=== PATIENT | female | born 1955 | race Caucasian/White ===

== ENCOUNTER 2017-05-03 17:40 | Emergency (ER) | payer MEDICARE, BC ==
[2017-05-03 22:31] LABS: ABS Basophils 0.1 10^3/ul (0-0.2); ABS Eosinophils 0.2 10^3/ul (0-0.6); ABS Lymphocytes 3.2 10^3/ul (1.0-4.8); ABS Monocytes 1.1 10^3/ul (0-0.8); ABS Neutrophils 8.5 10^3/ul (1.5-7.7); ABS Nucleated RBC 0 10^3/ul; Eosinophil % 1.5 % (0-6); Hematocrit 39 % (35-47); Hemoglobin 12.7 g/dl (12.0-16.0); Lymphocyte % 24.2 % (25-47); Mean Corpuscular HGB Conc 33 g/dl (31-36); Mean Corpuscular Hemoglobin 27 pg (27-31); Mean Corpuscular Volume 81 fL (80-97); Mean Platelet Volume 9 um3 (7.4-10.4); Nucleated Red Blood Cells % 0; Platelet Count 342 10^3/ul (150-450); Red Blood Count 4.76 10^6/ul (4.0-5.4); Red Cell Distribution Width 14 % (10.5-15); White Blood Count 13.2 10^3/ul (3.5-10.8)
[2017-05-03 22:49] LABS: EGFR Non-African American 64.1 (>60)
--- NOTE | 2017-05-03 23:29 | ED ---
Skin Complaint - HPI Summary HPI Summary: Lt great toe w/ redness, swelling pain and fever to touch. Started as crack between toes and has been getting worse since - noticed some d/c from said crack. Better w/ elevation and epsom salt soak - worse when it's been hanging down. Denies fever but has been more tired as of late. Admits to DM type 2 - has not checked her glucose as she's felt okay in this regard. Takes metformin and admits she doesn't eat the healthiest d/t financial situation. Has DM, fibromyalgia, interstitial cystitis and is sensitive to many foods - eats candy as sometimes that's all they have in the house. - History of Current Complaint Chief Complaint: EDExtremityLower Time Seen by Provider: 05/03/17 21:45 Stated Complaint: LT FT INJURY Hx Obtained From: Patient Pain Intensity: 7 - Allergy/Home Medications Allergies/Adverse Reactions: Allergies Allergy/AdvReac Type Severity Reaction Status Date / Time No Known Allergies Allergy Verified 05/03/17 21:57 PMH/Surg Hx/FS Hx/Imm Hx Previously Healthy: Yes Endocrine/Hematology History: Reports: Hx Diabetes History: Reports: Hx Renal Disease - pt believes this is from years of use of NSAID's - thinks it's improving, Other Problems/Disorders - interstitial cystitis Musculoskeletal History: Reports: Hx Fibromyalgia - sx include memory issues - Surgical History Surgery Procedure, Year, and Place: abd surgery, vaginal surgery, c section x 2 Infectious Disease History: No Infectious Disease History: Denies: Traveled Outside the [place] in Last 30 Days - Family History Known Family History: Positive: None - Social History Lives: With Family Alcohol Use: Rare Hx Substance Use: No Substance Use Type: Reports: None Hx Tobacco Use: No Smoking Status (MU): Never Smoked Tobacco Review of Systems Positive: Fatigue - sleeping more than usual. Negative: Fever, Chills Cardiovascular: Negative Negative: Palpitations, Chest Pain Respiratory: Negative Negative: Shortness Of Breath Gastrointestinal: Negative Negative: Abdominal Pain, Vomiting, Diarrhea, Nausea Positive: no symptoms reported Positive: Decreased ROM, Edema Positive: Rash - skin of Lt great toe red, swollen - space between toes w/ cracking Neurological: Negative Psychological: Normal All Other Systems Reviewed And Are Negative: Yes Physical Exam Triage Information Reviewed: Yes Vital Signs On Initial Exam: Initial Vitals Temp Pulse Resp BP Pulse Ox 97.8 F 110 18 142/80 98 05/03/17 17:48 05/03/17 17:48 05/03/17 17:48 05/03/17 17:48 05/03/17 17:48 Vital Signs Reviewed: Yes Appearance: Positive: Well-Appearing, No Pain Distress, Well-Nourished Skin: Positive: Warm, Skin Color Reflects Adequate Perfusion, Dry - skin over Lt hallux is erythematous w/ fever to touch - no skin breakdown over dorsal aspect but has early signs of blistering most likely from edema - maceration between 1st and 2nd phalange - no active d/c but pt reports she saw some the other day - dorsal aspect of foot with mild edema and TTP w/o erythema or streaking - no pitting - does not go past dorsal foot; DP's +2 , cap refill < 2 secs Head/Face: Positive: Normal Head/Face Inspection Eyes: Positive: EOMI, Conjunctiva Clear - anicteric sclera ENT: Positive: Hearing grossly normal, Pharynx normal - mucosa moist Respiratory/Lung Sounds: Positive: Breath Sounds Present Cardiovascular: Positive: Pulses are Symmetrical in both Upper and Lower Extremities. Negative: Leg Edema Left, Leg Edema Right - (-) Livia's sign B/L Musculoskeletal: Positive: Strength/ROM Intact, Pain @ - Lt hallux is TTP - no MTP joint edema Neurological: Positive: Normal, Sensory/Motor Intact, Alert, Oriented to Person Place, Time, CN Intact II-III Psychiatric: Positive: Normal - Pat Coma Scale Coma Scale Total: 15 Diagnostics - Vital Signs Vital Signs Temp Pulse Resp BP Pulse Ox 05/03/17 17:48 97.8 F 110 18 142/80 98 - Laboratory Lab Results: Lab Results 05/03/17 05/03/17 05/03/17 Range/Units 22:15 22:15 22:15 WBC 13.2 H (3.5-10.8) 10^3/ul RBC 4.76 (4.0-5.4) 10^6/ul Hgb 12.7 (12.0-16.0) g/dl Hct 39 (35-47) % MCV 81 (80-97) fL MCH 27 (27-31) pg MCHC 33 (31-36) g/dl RDW 14 (10.5-15) % Plt Count 342 (150-450) 10^3/ul MPV 9 (7.4-10.4) um3 Neut % (Auto) 64.7 (38-83) % Lymph % (Auto) 24.2 L (25-47) % Whiteside % (Auto) 8.6 (1-9) % Eos % (Auto) 1.5 (0-6) % Baso % (Auto) 1.0 (0-2) % Absolute Neuts (auto) 8.5 H (1.5-7.7) 10^3/ul Absolute Lymphs (auto) 3.2 (1.0-4.8) 10^3/ul Absolute Monos (auto) 1.1 H (0-0.8) 10^3/ul Absolute Eos (auto) 0.2 (0-0.6) 10^3/ul Absolute Basos (auto) 0.1 (0-0.2) 10^3/ul Absolute Nucleated RBC 0 10^3/ul Nucleated RBC % 0 ESR Pending Sodium 136 (133-145) mmol/L Potassium 3.9 (3.5-5.0) mmol/L Chloride 99 L (101-111) mmol/L Carbon Dioxide 29 (22-32) mmol/L Anion Gap 8 (2-11) mmol/L BUN 20 (6-24) mg/dL Creatinine 0.89 (0.51-0.95) mg/dL Est GFR ( Amer) 82.4 (>60) Est GFR (Non-Af Amer) 64.1 (>60) BUN/Creatinine Ratio 22.5 H (8-20) Glucose 115 H (70-100) mg/dL Lactic Acid 1.5 (0.5-2.0) mmol/L Uric Acid 4.6 (2.3-6.6) mg/dL Calcium 10.0 (8.6-10.3) mg/dL Total Bilirubin 0.20 (0.2-1.0) mg/dL AST 25 (13-39) U/L ALT 24 (7-52) U/L Alkaline Phosphatase 77 (34-104) U/L C-Reactive Protein 29.78 H (< 5.00) mg/L Total Protein 7.4 (6.4-8.9) g/dL Albumin 4.3 (3.2-5.2) g/dL Globulin 3.1 (2-4) g/dL Albumin/Globulin Ratio 1.4 (1-3) Result Diagrams: 05/03/17 22:15 05/03/17 22:15 Lab Statement: Any lab studies that have been ordered have been reviewed, and results considered in the medical decision making process. Course/Dx - Course Course Of Treatment: Suspect pt's tinea pedis led to place of entry for bacteria - will tx cellulitis and fungal infection. Education about foot hygiene and advised to have close f/u w/ PCP. Labs are indicative of early/mild infection - vitals stable and pt agrees w/ outpt tx plan. Will return to ED if danger s/sx present. - Diagnoses Provider Diagnoses: Cellulitis of toe of left foot, Tinea pedis, left Discharge - Discharge Plan Condition: Stable Disposition: HOME Prescriptions: Clindamycin HCl [Clindamycin 150 MG CAP*] 300 mg PO QID #38 cap Nystatin TOP POWDER* 1 applic TOPICAL TID #1 btl Patient Education Materials: Athlete's Foot (ED), Cellulitis (ED) Referrals: Daniel SADLER,Franco Garza [Primary Care Provider] - Additional Instructions: You appear to have an infection of your skin of the your toe. This may have been caused by the crack in your skin. The crack in your skin may have been caused by a fungal infection aka "athlete's foot". It is important that you keep your feet clean and dry - apply powder as directed and take antibiotics until completed. Keep foot dry by leaving it out to air, wearing sock that wick away sweat and moisture, do not leave your feet in wet shoes or socks and elevate your foot to reduce pain and swelling. You may soak in epsom salt but make sure to dry well after soaking. Follow up with PCP early next week - call tomorrow to schedule an appointment. *If worse in the meantime, return to ED
[2017-05-04 01:29] VITALS: BP 161/77
== END 2017-05-03 23:35 | disposition home or self-care (01) ==
LOC: ED 17:40
DX: L03.032 Cellulitis of left toe (principal); B35.3 Tinea pedis; R21 Rash and other nonspecific skin eruption
CPT/HCPCS: 36415; 80053; 83605; 84550; 85025; 85652; 86140; 99282